=== PATIENT | male | born 1990 | race Caucasian/White ===

== ENCOUNTER 2019-10-17 13:26 | Emergency (ER) | payer OTHER ==
[2019-10-17] MEDS ORDERED: HYDROCODONE/ACETAMINOPHEN 5/325 MG TAB ONE (13:49)
== END 2019-10-17 16:39 | disposition home or self-care (01) ==
LOC: EDH 13:26
DX: S63.8X2A Sprain of other part of left wrist and hand, initial encounter (principal); I10 Essential (primary) hypertension; I48.91 Unspecified atrial fibrillation; Z72.0 Tobacco use; Y04.0XXA Assault by unarmed brawl or fight, initial encounter; Y93.89 Activity, other specified; Y92.89 Other specified places as the place of occurrence of the external cause; Y99.8 Other external cause status
CPT/HCPCS: 73090; 73130

== ENCOUNTER 2020-02-03 21:57 | Inpatient (IN) | payer OTHER ==
[~2020-02-03] VITALS: Ht 175.3 cm; Wt 96.2 kg
[2020-02-03 22:30] LABS: BASOPHILS % (AUTO) 0.4 % (0.0-5.0); EOSINOPHILS % (AUTO) 0.1 % (0.0-8.0); HEMATOCRIT 23.1 % (42-54); MEAN CORPUSCULAR HEMOGLOBIN 30.7 pg (27.0-33.0); MEAN CORPUSCULAR HGB CONC 33.8 g/dL (32.0-36.0); MEAN CORPUSCULAR VOLUME 90.9 fL (79-99); MONOCYTES % (AUTO) 7.3 % (3.0-13.0); NEUTROPHILS % (AUTO) 83.3 % (40.0-77.0); NUCLEATED RED BLOOD CELLS 0.2 % (0.0-0.19); PLATELET COUNT (AUTO) 634 K/uL (130-400); RED BLOOD CELL COUNT(AUTO) 2.54 MIL/uL (4.50-6.20); RED CELL DISTRIBUTION WIDTH 13.4 % (11.0-15.5)
[2020-02-03 22:36] LABS: APPEARANCE,URINE Clear (CLEAR); BILIRUBIN,URINE Small (NEGATIVE); COLOR,URINE Dark Yellow (YELLOW); GLUCOSE, URINE (UA) Negative (NEGATIVE); KETONES,URINE Negative (NEGATIVE); LEUKOCYTE ESTERASE ,URINE Negative (NEGATIVE); NITRATE,URINE Negative (NEGATIVE); OCCULT BLOOD,URINE Negative (NEGATIVE); PH,URINE 7.5 (5.0-8.0); PROTEIN,URINE Trace mg/dL (NEGATIVE)
[2020-02-03 22:39] LABS: CARBON DIOXIDE 29 mmol/L (21-32); CHLORIDE 92 mmol/L (101-111); CREATININE 1.1 mg/dL (0.5-1.5); GLOMERULAR FILTR. RATE CALC 85 mL/min (>60); GLUCOSE,RANDOM 117 mg/dL (70-105); POTASSIUM 3.7 mmol/L (3.5-5.1); SODIUM SERUM 131 mmol/L (136-145); UREA NITROGEN, BLOOD 11 mg/dL (7-18)
[2020-02-03 22:40] LABS: WHITE BLOOD COUNT (AUTO) 38.1 K/uL (4.8-10.8)
[2020-02-03 22:49] LABS: ABG BASE EXCESS 5.9 mmol/L (-2.0-3.0); ABG HCO3 28.5 mmol/L (21.0-28.0); ABG OXYGEN SATURATION 94.8 % (95.0-99.0); ABG PCO2 35 mmHg (35-48)
[2020-02-03 22:52] LABS: ALANINE AMINOTRANSFERASE 26 U/L (12-78); ALBUMIN 1.7 g/dL (3.5-5.0); ASPARTATE AMINOTRANSFERASE 64 U/L (10-37); BILIRUBIN,TOTAL 2.8 mg/dL (0.2-1.0); CREATINE KINASE, TOTAL 10 U/L (21-232); INR 1.06 (0.85-1.15); MYOGLOBIN 13 ng/mL (10-92); PARTIAL THROMBOPLASTIN TIME 28.3 SEC (26.3-35.5); PROTHROMBIN TIME 11.4 SEC (9.6-11.6); TOTAL PROTEIN, SERUM 7.6 g/dL (6.0-8.3); TROPONIN I < 0.04 ng/mL (0.00-0.06)
[2020-02-03] MEDS ORDERED: ACETAMINOPHEN EXTRA STRENGTH 500 MG TABLET ONE (23:01)
[2020-02-03] MEDS ORDERED: ZOSYN 3.375GM+NS 50ML 50 ML IV ONE (23:02)
[2020-02-03] MEDS ORDERED: ONDANSETRON HCL 4 MG/2 ML VIAL ONE (23:02)
[2020-02-03] MEDS ORDERED: MORPHINE SULFATE 2 MG/ML 1ML SYG ONE (23:02)
[2020-02-03 23:04] LABS: BACTERIA,URINE Rare /HPF (None Seen); RBC,URINE 0-1 /HPF (0-1); SQUAMOUS EPITHELIAL CELL,UR 0-2 /HPF (0-2); TRANSITIONAL EPI CELLS,URINE Rare /HPF (None Seen); WBC,URINE 0-1 /HPF (0-1)
[2020-02-03 23:16] LABS: AMYLASE 36 U/L (25-115); LIPASE 429 U/L (114-286)
[2020-02-03 23:24] LABS: BAND NEUTROPHILS % (MANUAL) 5 % (0-2); LYMPHOCYTES % (MANUAL) 9 % (22-44); MAN.DIFF COMMENT-IMPRESSION MANUAL DIFFERENTIAL; MONOCYTES % (MANUAL) 5 % (2-9); SEGMENTED NEUTROPHILS % 81 % (40-70)
[2020-02-04] VITALS (7 sets, daily range): BP systolic 112–129; BP diastolic 59–70
[2020-02-04] MEDS ORDERED: LACTULOSE 20 GM/30 ML UDCUP PO PRN (00:15)
[2020-02-04] MEDS ORDERED: HYDRALAZINE HCL 20 MG/ML VIAL IV PRN (00:30)
[2020-02-04 01:00] LABS: HDL CHOLESTEROL 68 mg/dL (29-71); LDL DIRECT 77 mg/dL (0-99); TRIGLYCERIDES 247 mg/dL (30-200)
[2020-02-04] MEDS ORDERED: PHARMACY COMMUNICATION MISC SCH (01:00)
[2020-02-04 01:20] LABS: AMPHET/METH SCREEN,URINE NEGATIVE (NEGATIVE); BARBITURATE SCREEN, URINE NEGATIVE (NEGATIVE); BENZODIAZEPINES SCREEN,URINE NEGATIVE (NEGATIVE); CANNABINOID SCREEN,URINE POSITIVE (NEGATIVE); COCAINE SCREEN,URINE NEGATIVE (NEGATIVE); OPIATE SCREEN,URINE NEGATIVE (NEGATIVE); PHENCYCLIDINE SCREEN,URINE NEGATIVE (NEGATIVE)
[2020-02-04] MEDS ORDERED: SODIUM CHLORIDE 0.9% 1000ML 1,000 ML IV ONE (01:40)
[2020-02-04 01:48] LABS: HEMOGLOBIN A1C 5.5 % (4.0-6.0)
[2020-02-04 01:52] LABS: CHOLESTEROL 142 mg/dL (<200)
--- NOTE | 2020-02-04 03:00 | NUR ---
PATIENT ARRIVED ON UNIT PATIENT A/OX3. C/O SHORTNESS OF BREATH WITH EXERTION. CURRENTLY USING 2L OF OXYGEN VIA NC. ABDOMEN DISTENDED AND FIRM. PAIN TO LEFT ABDOMEN AND L FLANK. TOLERATING IVF. PATIENT NPO PER ORDERS. CALL LIGHT WITHIN REACH. WILL CONTINUE TO MONITOR.
[2020-02-04] MEDS ORDERED: CIPR-245 PO (03:48)
[2020-02-04] MEDS ORDERED: FENO48TA9 PO (03:48)
[2020-02-04] MEDS ORDERED: HYOS-27 SL (03:48)
[2020-02-04] MEDS: MORPHINE SULFATE 2 MG/ML 1ML SYG IV PRN ×2 (04:04→10:01)
[2020-02-04] MEDS: INSULIN HUMULIN R 100 UNIT/ML 3ML SQ SCH ×3 (06:00→21:00)
[2020-02-04] MEDS: ZOSYN 3.375GM+NS 50ML 50 ML IV SCH ×3 (06:38→21:01)
[2020-02-04] MEDS ORDERED: FAMOTIDINE/PF 20 MG/2 ML VIAL IV SCH (09:00)
[2020-02-04] MEDS ORDERED: PANTOPRAZOLE 40 MG/VIAL IVP SCH (09:00)
[2020-02-04 12:16] LABS: HEMATOCRIT 21.9 % (42-54); MEAN CORPUSCULAR HEMOGLOBIN 30.8 pg (27.0-33.0); MEAN CORPUSCULAR HGB CONC 32.9 g/dL (32.0-36.0); MEAN CORPUSCULAR VOLUME 93.6 fL (79-99); NUCLEATED RED BLOOD CELLS 0.1 % (0.0-0.19); RED BLOOD CELL COUNT(AUTO) 2.34 MIL/uL (4.50-6.20); RED CELL DISTRIBUTION WIDTH 13.7 % (11.0-15.5)
[2020-02-04 12:31] LABS: POTASSIUM 4.2 mmol/L (3.5-5.1)
[2020-02-04 12:32] LABS: WHITE BLOOD COUNT (AUTO) 33.9 K/uL (4.8-10.8)
[2020-02-04 12:36] LABS: ALBUMIN 1.5 g/dL (3.5-5.0); BILIRUBIN,TOTAL 2.8 mg/dL (0.2-1.0); TOTAL PROTEIN, SERUM 6.9 g/dL (6.0-8.3)
[2020-02-04] MEDS ORDERED: IOHEXOL-350 75 ML VIAL IV ONE (15:39)
[2020-02-04] MEDS: SODIUM CHLORIDE 0.9% 1000ML 1,000 ML IV SCH (16:10)
--- NOTE | 2020-02-04 16:16 | NUR ---
CM NOTE MET W PATIENT AT BEDSIDE FOR IA,PT PALE, UNCOMFORTABLE, ANXIOUS LOOKING. ABDOMINAL DISTENTION. LIVES WITH GIRLFRIEND LM ON FACE SHEET, RECENTLY UNEMPLOYED SECOND TO HIS HEALTH. NO DME, DRIVES, INDEPENDENT HAS BEEN DRINKING SINCE HE WAS A KID- STOPPED ABOUT A MONTH AGO. HAS EXPERIENCED SYMPTOMS SINCE THEN . WAS AT [facility] FOR THREE DAYS FOR SAME PROBLEM, PATIENT WILL LIKELY NEED TPN/NPO. DISCUSSED CASE WITH DR. Alvarado, AND WILL PASS ON THE [facility] FOR POSSIBLE DISABILITY BENEFITS? Addendum: 02/04/20 at 0771 by DAV MORROW RN CM Amended: Links added.
[2020-02-04] MEDS: MORPHINE SULFATE 4 MG/1ML SYG IVP PRN ×2 (16:51→21:25)
[2020-02-04] MEDS ORDERED: LIPASE/PROTEASE/AMYLASE 5000/17000/24000 PO SCH (21:00)
[2020-02-04] MEDS: LIPASE/PROTEASE/AMYLASE 5000/17000/24000 PO SCH (21:01)
[2020-02-05] MEDS: MORPHINE SULFATE 4 MG/1ML SYG IVP PRN ×4 (01:33→19:53)
--- NOTE | 2020-02-05 03:46 | NUR ---
PATIENT ABDOMEN REMAINS FIRM,DISTENDED, AND PAINFUL. NO C/O SOB. PATIENT DOES BECOME TACHY REACHING 150S WHEN AMBULATING DUE TO PAIN. MEDICATED THROUGHOUT THE NIGHT WITH ORDERED MEDICATION. TOLERATING IV ANTIBIOTICS. NO S/S OF ADVERSE EFFECTS. WILL CONTINUE TO MONITOR.
[2020-02-05 04:30] VITALS: BP 133/67
[2020-02-05] MEDS: ZOSYN 3.375GM+NS 50ML 50 ML IV SCH ×3 (04:35→19:55)
[2020-02-05] MEDS: SODIUM CHLORIDE 0.9% 1000ML 1,000 ML IV SCH ×3 (04:37→16:10)
[2020-02-05 05:01] LABS: BASOPHILS % (AUTO) 0.4 % (0.0-5.0); EOSINOPHILS % (AUTO) 0.6 % (0.0-8.0); HEMATOCRIT 22.2 % (42-54); LYMPHOCYTES % (AUTO) 5.7 % (21.0-51.0); MEAN CORPUSCULAR HEMOGLOBIN 30.8 pg (27.0-33.0); MEAN CORPUSCULAR HGB CONC 32.4 g/dL (32.0-36.0); MEAN CORPUSCULAR VOLUME 94.9 fL (79-99); MONOCYTES % (AUTO) 6.6 % (3.0-13.0); NEUTROPHILS % (AUTO) 84.9 % (40.0-77.0); NUCLEATED RED BLOOD CELLS 0.1 % (0.0-0.19); RED BLOOD CELL COUNT(AUTO) 2.34 MIL/uL (4.50-6.20); RED CELL DISTRIBUTION WIDTH 13.6 % (11.0-15.5)
[2020-02-05 05:12] LABS: PLATELET COUNT (AUTO) 793 K/uL (130-400); WHITE BLOOD COUNT (AUTO) 31.3 K/uL (4.8-10.8)
[2020-02-05 05:27] LABS: POTASSIUM 4.4 mmol/L (3.5-5.1)
[2020-02-05] MEDS: INSULIN HUMULIN R 100 UNIT/ML 3ML SQ SCH ×3 (05:48→12:00)
[2020-02-05 07:00] VITALS: BP 116/52
--- NOTE | 2020-02-05 07:30 | NUR ---
ASSESSMENT ENCOUNTERED PT A&OX3, CALM COOPERATIVE AND DOES NOT APPEAR TO BE IN ANY DISTRESS NOR ANY NEURO DEFICITS PRESENT. PT DOES C/O INTERMITTENT PAIN AND NAUSEA TO ABDOMEN. PT IS AMBULATORY, GAIT STEADY AND STRONG WITH STAND BY ASSIST. PT IS ABLE TO TOLERATE SMALL AMOUNTS OF CLEAR LIQUID WITH NO THROAT CLEARING OR COUGH. CALL LIGHT WITHIN REACH.
[2020-02-05 09:10] LABS: HEPATITIS A ANTIBODY IGM Negative (Negative); HEPATITIS B CORE IGM Negative (Negative); HEPATITIS Bs ANTIGEN SCREEN P Negative (Negative)
[2020-02-05] MEDS: PANTOPRAZOLE SODIUM 40 MG TABLET.DR PO SCH (09:48)
[2020-02-05] MEDS: LIPASE/PROTEASE/AMYLASE 5000/17000/24000 PO SCH ×4 (09:49→19:55)
[2020-02-05 10:36] LABS: HEMATOCRIT 21.5 % (42-54)
[2020-02-05 11:00] VITALS: BP 116/67
[2020-02-05] MEDS: ACETAMINOPHEN 325 MG TAB PO PRN ×2 (12:41→19:55)
[2020-02-05 15:00] VITALS: BP 112/65
[2020-02-05] MEDS: HYDROMORPHONE HCL 0.5 MG/0.5 ML ML IVP PRN ×2 (15:13→23:31)
[2020-02-05 17:26] LABS: HEMATOCRIT 20.5 % (42-54)
[2020-02-05 19:41] VITALS: BP 126/72
[2020-02-05 23:30] VITALS: BP 138/76
[2020-02-06] MEDS: SODIUM CHLORIDE 0.9% 1000ML 1,000 ML IV SCH ×2 (00:10→08:11)
[2020-02-06] MEDS ORDERED: SODIUM CHLORIDE 0.9% 250 ML IV ONE (00:29)
[2020-02-06] MEDS: MORPHINE SULFATE 4 MG/1ML SYG IVP PRN ×4 (02:53→21:57)
[2020-02-06 03:57] VITALS: BP 136/72
[2020-02-06] MEDS: ZOSYN 3.375GM+NS 50ML 50 ML IV SCH (04:28)
[2020-02-06] MEDS: INSULIN HUMULIN R 100 UNIT/ML 3ML SQ SCH ×4 (05:40→21:00)
[2020-02-06] MEDS: HYDROMORPHONE HCL 0.5 MG/0.5 ML ML IVP PRN ×3 (05:40→19:07)
[2020-02-06 06:01] LABS: BASOPHILS % (AUTO) 0.3 % (0.0-5.0); EOSINOPHILS % (AUTO) 0.3 % (0.0-8.0); LYMPHOCYTES % (AUTO) 5.2 % (21.0-51.0); MEAN CORPUSCULAR HEMOGLOBIN 30.5 pg (27.0-33.0); MEAN CORPUSCULAR HGB CONC 32.7 g/dL (32.0-36.0); MEAN CORPUSCULAR VOLUME 93.3 fL (79-99); MONOCYTES % (AUTO) 7.1 % (3.0-13.0); NEUTROPHILS % (AUTO) 85.6 % (40.0-77.0); RED CELL DISTRIBUTION WIDTH 13.5 % (11.0-15.5)
[2020-02-06 06:10] LABS: HEMATOCRIT 19.6 % (42-54); PLATELET COUNT (AUTO) 785 K/uL (130-400); WHITE BLOOD COUNT (AUTO) 31.7 K/uL (4.8-10.8)
[2020-02-06 06:21] LABS: ALBUMIN 1.6 g/dL (3.5-5.0); BILIRUBIN,TOTAL 1.9 mg/dL (0.2-1.0); CREATININE 0.9 mg/dL (0.5-1.5); POTASSIUM 4.1 mmol/L (3.5-5.1)
[2020-02-06 07:00] VITALS: BP 125/75
[2020-02-06] MEDS: ACETAMINOPHEN 325 MG TAB PO PRN ×2 (08:01→20:31)
[2020-02-06] MEDS ORDERED: VANCOMYCIN PROTOCOL PER PHARMACY IV SCH (08:15)
[2020-02-06] MEDS ORDERED: COMPOUND IV REFRIGERATED 1 EACH IVSOLN MISC PRN (08:30)
[2020-02-06] MEDS: VANCOMYCIN 1.25 GM in SODIUM CHLORIDE 0.9% 250 ML IV SCH ×2 (09:50→21:08)
[2020-02-06 11:00] VITALS: BP 135/73
[2020-02-06] MEDS: LIPASE/PROTEASE/AMYLASE 5000/17000/24000 PO SCH ×3 (13:00→20:28)
[2020-02-06] MEDS: PANTOPRAZOLE SODIUM 40 MG TABLET.DR PO SCH (13:00)
[2020-02-06] MEDS: MEROPENEM 1 GM VIAL IVP SCH ×2 (13:00→20:28)
[2020-02-06 15:00] VITALS: BP 139/74
[2020-02-06 20:00] VITALS: BP 132/70
[2020-02-06 23:43] VITALS: BP 117/76
[2020-02-07] MEDS: HYDROMORPHONE HCL 0.5 MG/0.5 ML ML IVP PRN ×4 (01:04→19:53)
[2020-02-07] MEDS: MORPHINE SULFATE 4 MG/1ML SYG IVP PRN ×4 (02:16→17:04)
[2020-02-07 04:09] VITALS: BP 128/78
[2020-02-07] MEDS: MEROPENEM 1 GM VIAL IVP SCH ×3 (04:54→13:57)
[2020-02-07] MEDS: SODIUM CHLORIDE 0.9% 1000ML 1,000 ML IV SCH ×3 (04:57→20:23)
[2020-02-07 05:25] LABS: BASOPHILS % (AUTO) 0.3 % (0.0-5.0); EOSINOPHILS % (AUTO) 0.5 % (0.0-8.0); HEMATOCRIT 23.2 % (42-54); LYMPHOCYTES % (AUTO) 5.9 % (21.0-51.0); MEAN CORPUSCULAR HEMOGLOBIN 30.4 pg (27.0-33.0); MEAN CORPUSCULAR HGB CONC 33.2 g/dL (32.0-36.0); MEAN CORPUSCULAR VOLUME 91.7 fL (79-99); MONOCYTES % (AUTO) 7.6 % (3.0-13.0); NEUTROPHILS % (AUTO) 84.8 % (40.0-77.0); RED BLOOD CELL COUNT(AUTO) 2.53 MIL/uL (4.50-6.20); RED CELL DISTRIBUTION WIDTH 13.8 % (11.0-15.5); WHITE BLOOD COUNT (AUTO) 26.6 K/uL (4.8-10.8)
[2020-02-07 05:32] LABS: PLATELET COUNT (AUTO) 878 K/uL (130-400)
[2020-02-07 05:33] LABS: % IRON SATURATION 9.4 % (30-44)
[2020-02-07 05:38] LABS: ALBUMIN 1.6 g/dL (3.5-5.0); BILIRUBIN,DIRECT 1.1 mg/dL (0.0-0.3); BILIRUBIN,TOTAL 1.7 mg/dL (0.2-1.0); CREATININE 0.6 mg/dL (0.5-1.5); POTASSIUM 4.1 mmol/L (3.5-5.1); TOTAL PROTEIN, SERUM 7.1 g/dL (6.0-8.3)
[2020-02-07] MEDS: INSULIN HUMULIN R 100 UNIT/ML 3ML SQ SCH ×4 (06:54→20:35)
[2020-02-07 07:00] VITALS: BP 138/78
[2020-02-07 08:20] LABS: INR 1.18 (0.85-1.15); PARTIAL THROMBOPLASTIN TIME 30.8 SEC (26.3-35.5); PROTHROMBIN TIME 12.7 SEC (9.6-11.6)
[2020-02-07] MEDS: ONDANSETRON HCL 4 MG/2 ML VIAL IV PRN (08:35)
[2020-02-07] MEDS: VANCOMYCIN 1.25 GM in SODIUM CHLORIDE 0.9% 250 ML IV SCH (09:13)
[2020-02-07] MEDS ORDERED: COMPOUND IV MISC 1 EACH IVSOLN MISC PRN (09:45)
[2020-02-07 11:00] VITALS: BP 141/84
--- NOTE | 2020-02-07 11:20 | NUR ---
RE:CT GUIDED ABDOMINAL ASPIRATION BY IR FOR FLUID C&S IMAGES REVIEWED BY DR Christopher ROJAS AND CANCELED PROCEDURE. THERE ARE MULTIPLE LOCULATED PANCREATIC PSEUDOCYSTS WITH HIGH RISK OF COMPLICATIONS IF ASPIRATED OR DRAINED. RECOMMENDS TREATMENT BASED ON BLOOD CULTURES. PROCEDURE OUTCOME REPORTED TO INOCENCIA FRANCIS.
[2020-02-07] MEDS: LIPASE/PROTEASE/AMYLASE 5000/17000/24000 PO SCH ×4 (11:45→20:22)
[2020-02-07] MEDS: IRON SUCROSE COMPLEX 100 MG in SODIUM CHLORIDE 0.9% 50 ML IV SCH (11:45)
[2020-02-07] MEDS: PANTOPRAZOLE SODIUM 40 MG TABLET.DR PO SCH (11:46)
[2020-02-07 16:00] VITALS: BP 121/74
[2020-02-07 19:45] VITALS: BP 144/76
--- NOTE | 2020-02-07 21:30 | NUR ---
REPORT REPORT RECEIVED FROM INOCENCIA JEROME. TOOK OVER CARE OF PT.
[2020-02-07] MEDS: VANCOMYCIN 1.5 GM in SODIUM CHLORIDE 0.9% 250 ML IV SCH (21:58)
[2020-02-07] MEDS: KETOROLAC TROMETHAMINE 30MG/ML IV PRN (21:59)
--- NOTE | 2020-02-07 22:00 | NUR ---
MEDS PT CLAIMS OF ABDOMINAL PAINS. MEDICATED WITH TORADOL IV AT THIS TIME. DUE IV ANTIBIOTICS INFUSED. PIV TO LAC NOTED TO BE INFILTRATED, DISCONTINUED WITH CATHETER INTACT. KEPT RESTED AND COMFORTABLE WITH HOB ELEVATED. CALL LIGHT WITHIN REACH. WILL RE-ASSESS PT.
[2020-02-08 00:27] VITALS: BP 123/69
[2020-02-08] MEDS: MORPHINE SULFATE 4 MG/1ML SYG IVP PRN ×3 (00:36→11:06)
[2020-02-08] MEDS: HYDROMORPHONE HCL 0.5 MG/0.5 ML ML IVP PRN ×5 (02:05→23:13)
--- NOTE | 2020-02-08 02:05 | NUR ---
PAIN PT CLAIMS OF ABDOMINAL PAINS. NO NAUSEA REPORTED. MEDICATED WITH DILAUDID IV. KEPT COMFORTABLE IN BED. ENCOURAGED TO RELAX AND SLEEP. WILL RE-ASSESS PT.
[2020-02-08 04:04] VITALS: BP 141/74
[2020-02-08] MEDS: MEROPENEM 1 GM VIAL IVP SCH ×3 (04:23→20:57)
[2020-02-08] MEDS: ACETAMINOPHEN 325 MG TAB PO PRN ×2 (04:23→11:00)
--- NOTE | 2020-02-08 04:23 | NUR ---
FEVER PT HAS A [id number]. COLD PACKS PROVIDED FOR PT. ROOM TEMPERATURE KEPT COOL. REMOVED EXTRA BLANKET. MEDICATED WITH TYLENOL PO. WILL RE-ASSESS PT.
--- NOTE | 2020-02-08 05:07 | NUR ---
PAIN PT CLAIMS OF ABDOMINAL PAINS. MEDICATED WITH MORPHINE IV. KEPT COMFORTABLE IN BED. CALL LIGHT WITHIN REACH. WILL RE-ASSESS PT.
[2020-02-08 06:23] LABS: BASOPHILS % (AUTO) 0.4 % (0.0-5.0); EOSINOPHILS % (AUTO) 0.7 % (0.0-8.0); HEMATOCRIT 22.8 % (42-54); LYMPHOCYTES % (AUTO) 5.8 % (21.0-51.0); MEAN CORPUSCULAR HEMOGLOBIN 29.8 pg (27.0-33.0); MEAN CORPUSCULAR HGB CONC 32.5 g/dL (32.0-36.0); MEAN CORPUSCULAR VOLUME 91.9 fL (79-99); MONOCYTES % (AUTO) 9.8 % (3.0-13.0); NEUTROPHILS % (AUTO) 82.4 % (40.0-77.0); RED BLOOD CELL COUNT(AUTO) 2.48 MIL/uL (4.50-6.20); RED CELL DISTRIBUTION WIDTH 14.3 % (11.0-15.5); WHITE BLOOD COUNT (AUTO) 22.8 K/uL (4.8-10.8)
[2020-02-08 06:28] LABS: PLATELET COUNT (AUTO) 887 K/uL (130-400)
[2020-02-08 06:33] LABS: ALBUMIN 1.7 g/dL (3.5-5.0); BILIRUBIN,TOTAL 1.4 mg/dL (0.2-1.0); CREATININE 0.8 mg/dL (0.5-1.5); POTASSIUM 4.6 mmol/L (3.5-5.1); TOTAL PROTEIN, SERUM 7.3 g/dL (6.0-8.3)
[2020-02-08] MEDS: INSULIN HUMULIN R 100 UNIT/ML 3ML SQ SCH ×4 (06:37→21:00)
[2020-02-08 07:00] VITALS: BP 131/86
[2020-02-08] MEDS: PANTOPRAZOLE SODIUM 40 MG TABLET.DR PO SCH (08:19)
[2020-02-08] MEDS: LIPASE/PROTEASE/AMYLASE 5000/17000/24000 PO SCH ×4 (08:19→20:57)
[2020-02-08] MEDS: IRON SUCROSE COMPLEX 100 MG in SODIUM CHLORIDE 0.9% 50 ML IV SCH (08:22)
[2020-02-08 11:00] VITALS: BP 141/76
[2020-02-08] MEDS: VANCOMYCIN 1.5 GM in SODIUM CHLORIDE 0.9% 250 ML IV SCH ×2 (11:01→20:57)
[2020-02-08] MEDS: KETOROLAC TROMETHAMINE 30MG/ML IV PRN (13:07)
[2020-02-08] MEDS: SODIUM CHLORIDE 0.9% 1000ML 1,000 ML IV SCH (13:31)
--- NOTE | 2020-02-08 14:50 | NUR ---
RE:CT GUIDED ABDOMINAL ASPIRATION BY IR FOR FLUID C&S IMAGES REVIEWED BY DR. BRITO HE AGREES WITH DR. ROJAS AND CANCELED PROCEDURE. HE STATES, "THERE ARE MULTIPLE LOCULATED PANCREATIC PSEUDOCYSTS WITH HIGH RISK OF COMPLICATIONS IF ASPIRATED OR DRAINED. RECOMMENDS TREATMENT BASED ON BLOOD CULTURES." PROCEDURE OUTCOME REPORTED TO PENNY PEREZ RN.
[2020-02-08 16:00] VITALS: BP 118/70
[2020-02-08 19:25] VITALS: BP 138/78
[2020-02-08] MEDS: HYDROMORPHONE HCL 2 MG/ML VIAL IVP PRN (20:56)
--- NOTE | 2020-02-08 20:57 | NUR ---
PAIN PT C/O OF ABD PAIN. ADMIN PAIN MED ORDERED- SEE NOV. ABD ROUND, DISTENDED. NO C/O N/V. CYBER SECURITY ADMINISTRATOR REPORTING SINUS TACH 130S. CALL LIGHT WITHIN REACH. BED LOCKED IN LOWEST POSITION. 2 LPM O2 VIA NC ON. REINFORCED FOR PT TO USE CALL LIGHT TO CALL FOR ASSISTANCE BEFORE GETTING OUT OF BED.
[2020-02-09] VITALS (7 sets, daily range): BP systolic 128–151; BP diastolic 59–83
--- NOTE | 2020-02-09 00:52 | NUR ---
PAGED VENUS PT REPORTS FEELING SOB UPON EXERTION. RAMA KING RETURNED PAGED. ORDERED IS FOR NOW D/T ELEVATED HR 121. CXR IN AM. BNP IN AM. BED REST. WILL PLACE ORDERS IN [facility] AND IMPLEMENT. WILL CLOSELY CONT TO MONITOR PT.
[2020-02-09] MEDS: HYDROMORPHONE HCL 2 MG/ML VIAL IVP PRN ×3 (02:19→14:21)
[2020-02-09] MEDS: MEROPENEM 1 GM VIAL IVP SCH ×2 (04:02→16:06)
[2020-02-09] MEDS: KETOROLAC TROMETHAMINE 30MG/ML IV PRN (04:03)
[2020-02-09 05:06] LABS: BASOPHILS % (AUTO) 0.5 % (0.0-5.0); EOSINOPHILS % (AUTO) 0.3 % (0.0-8.0); LYMPHOCYTES % (AUTO) 7.1 % (21.0-51.0); MEAN CORPUSCULAR HEMOGLOBIN 29.1 pg (27.0-33.0); MEAN CORPUSCULAR HGB CONC 31.7 g/dL (32.0-36.0); MEAN CORPUSCULAR VOLUME 91.6 fL (79-99); RED BLOOD CELL COUNT(AUTO) 2.27 MIL/uL (4.50-6.20); RED CELL DISTRIBUTION WIDTH 14.5 % (11.0-15.5); WHITE BLOOD COUNT (AUTO) 23.4 K/uL (4.8-10.8)
[2020-02-09 05:27] LABS: MAGNESIUM 1.6 mg/dL (1.80-2.40)
[2020-02-09 05:32] LABS: HEMATOCRIT 20.8 % (42-54); PLATELET COUNT (AUTO) 823 K/uL (130-400)
--- NOTE | 2020-02-09 05:45 | NUR ---
CRITICAL LAB HGB 6.6, HCT 20.8, PLT 823. PENDING CHRISTINE YANG TO CALL BACK.
[2020-02-09 05:54] LABS: CRP QUANTITATIVE 339.5 mg/L (0.00-9.0)
--- NOTE | 2020-02-09 05:58 | NUR ---
VENUS RETURNED [facility] VALUES REPORTED TO CHRISTINE PINEDA. MIRIAM ORDERED FOR ONE UNIT PRBCs BE TRANSFUSED OVER FOUR HOURS.
[2020-02-09] MEDS: HYDROMORPHONE HCL 0.5 MG/0.5 ML ML IVP PRN (06:38)
[2020-02-09] MEDS: INSULIN HUMULIN R 100 UNIT/ML 3ML SQ SCH ×4 (07:15→19:52)
--- NOTE | 2020-02-09 07:22 | NUR ---
REPORT GIVEN TO CECILLE PRO. NURSE INFORMED OF PENDING PRBC TRANSFUSION. PT AWARE OF TRANSFUSION. PENDING BLOOD BANK TO AUTHORIZE ORDER.
[2020-02-09] MEDS: VANCOMYCIN 1.5 GM in SODIUM CHLORIDE 0.9% 250 ML IV SCH (08:35)
[2020-02-09] MEDS: PANTOPRAZOLE SODIUM 40 MG TABLET.DR PO SCH (08:35)
[2020-02-09] MEDS: LIPASE/PROTEASE/AMYLASE 5000/17000/24000 PO SCH ×4 (08:35→23:47)
[2020-02-09] MEDS: IRON SUCROSE COMPLEX 100 MG in SODIUM CHLORIDE 0.9% 50 ML IV SCH (08:35)
[2020-02-09] MEDS: ACETAMINOPHEN 325 MG TAB PO PRN (10:39)
[2020-02-09] MEDS ORDERED: FUROSEMIDE 10 MG/ML 2ML VIAL IV SCH ×2 (11:00→17:00)
[2020-02-09] MEDS: SODIUM CHLORIDE 0.9% 1000ML 1,000 ML IV SCH ×2 (16:00→16:11)
[2020-02-09] MEDS: FLUCONAZOLE 200 MG/NS 100 ML 100 ML IV SCH (16:06)
[2020-02-09 16:46] LABS: HEMATOCRIT 25.4 % (42-54)
[2020-02-09] MEDS ORDERED: HYDROMORPHONE 1 MG/1 ML AMP ONE (19:39)
[2020-02-09] MEDS ORDERED: VANCOMYCIN 2 GM in SODIUM CHLORIDE 0.9% 500ML 500 ML IV ONE (21:30)
--- NOTE | 2020-02-09 22:45 | NUR ---
VANCOMYCIN Vanco trough at 6.6, pharmacy adjusted dose to 2 gm ivpb for tonight then back to 1.5 gms q 8 hrs.
[2020-02-09] MEDS: HYDROMORPHONE 1 MG/1 ML AMP IVP PRN (23:46)
[2020-02-10] MEDS: MEROPENEM 1 GM VIAL IVP SCH ×4 (00:37→20:41)
[2020-02-10] MEDS: TEMAZEPAM 7.5 MG CAPSULE PO PRN (01:16)
[2020-02-10] MEDS: HYDROMORPHONE 1 MG/1 ML AMP IVP PRN ×5 (03:55→20:44)
[2020-02-10 03:58] VITALS: BP 130/73
[2020-02-10] MEDS: VANCOMYCIN 1.5 GM in SODIUM CHLORIDE 0.9% 250 ML IV SCH ×3 (05:02→22:30)
[2020-02-10 05:19] LABS: BASOPHILS % (AUTO) 0.3 % (0.0-5.0); EOSINOPHILS % (AUTO) 0.8 % (0.0-8.0); HEMATOCRIT 24.3 % (42-54); MEAN CORPUSCULAR HEMOGLOBIN 29.8 pg (27.0-33.0); MEAN CORPUSCULAR HGB CONC 32.1 g/dL (32.0-36.0); MEAN CORPUSCULAR VOLUME 92.7 fL (79-99); MONOCYTES % (AUTO) 12.5 % (3.0-13.0); NEUTROPHILS % (AUTO) 77.4 % (40.0-77.0); RED BLOOD CELL COUNT(AUTO) 2.62 MIL/uL (4.50-6.20); RED CELL DISTRIBUTION WIDTH 14.4 % (11.0-15.5); WHITE BLOOD COUNT (AUTO) 19.6 K/uL (4.8-10.8)
[2020-02-10 05:35] LABS: PHOSPHORUS 3.2 mg/dL (2.5-4.9)
[2020-02-10 05:53] LABS: PLATELET COUNT (AUTO) 771 K/uL (130-400)
[2020-02-10] MEDS: INSULIN HUMULIN R 100 UNIT/ML 3ML SQ SCH ×4 (06:28→20:40)
[2020-02-10 07:18] VITALS: BP 145/94
[2020-02-10] MEDS: SODIUM CHLORIDE 0.9% 1000ML 1,000 ML IV SCH ×2 (08:29→16:43)
[2020-02-10] MEDS: IRON SUCROSE COMPLEX 100 MG in SODIUM CHLORIDE 0.9% 50 ML IV SCH (08:29)
[2020-02-10] MEDS: LIPASE/PROTEASE/AMYLASE 5000/17000/24000 PO SCH ×4 (08:33→20:40)
[2020-02-10] MEDS: PANTOPRAZOLE SODIUM 40 MG TABLET.DR PO SCH (08:33)
[2020-02-10 08:49] LABS: CREATININE 0.6 mg/dL (0.5-1.5)
[2020-02-10 08:56] LABS: ALBUMIN 1.7 g/dL (3.5-5.0); BILIRUBIN,TOTAL 1.4 mg/dL (0.2-1.0); TOTAL PROTEIN, SERUM 6.7 g/dL (6.0-8.3)
[2020-02-10] MEDS ORDERED: IOHEXOL-350 75 ML VIAL IV ONE (09:27)
[2020-02-10 10:37] VITALS: BP 142/80
--- NOTE | 2020-02-10 11:50 | NUR ---
RD NOTIFICATION - TUBE FEEDING Pending DobHoff placement. Recommend Continuous Vital AF 1.2 initiated at 20mls/hr for first 5 hours Increase rate by 5 ml every 5 hours to goal Goal Rate: 65mls/hr to provide 1872kcal, 117gm protein, 1265ml free H2O H2O Flush: 105 ml every 6 hours. Recommendations to be placed in Pt chart. RN to be notified. Nutrition Note: Pt admitted with chronic pancreatitis, elevated liver enzymes. Pt with increased abdominal pain on Clear Liquids. Pt placed on Bowel rest. Pending quang placement for post-pyloric, elemental feedings. RD to continue to monitor. Addendum: 02/10/20 at [address] Amended: Links added.
[2020-02-10] MEDS: FLUCONAZOLE 200 MG/NS 100 ML 100 ML IV SCH (12:43)
--- NOTE | 2020-02-10 14:15 | NUR ---
TUBE FEEDING VITAL 1.2 STARTED. ABDOMEN SOFT, MILDLY DISTENDED. DENIES ANY PAIN/DISCOMFORT AT THIS TIME. DUBHOFF TUBE PLACEMENT CHECKED AFTER REMOVING WIRE POST OK TO USE ORDER FROM DR. WU. FLUSHED W 110 ML H20. PT TOLERATED WELL.WILL CONTINUE TO MONITOR.
--- NOTE | 2020-02-10 15:35 | NUR ---
C/O ABDOMINAL DISCOMFORT D/T ABDOMEN DISTENTION. ABDOMEN DISTENDED AND REPORTS DISCOMFORT. STOPPED FEEDING. NOTIFIED DR. WU. WILL CONTINUE TO MONITOR.
[2020-02-10 16:00] VITALS: BP 139/79
[2020-02-10] MEDS: ONDANSETRON HCL 4 MG/2 ML VIAL IV PRN (16:43)
[2020-02-10] MEDS ORDERED: MAGNESIUM 2GM PREMIX 50ML 50 ML IV ONE (18:48)
[2020-02-10] MEDS ORDERED: MAGNESIUM 2GM PREMIX 50ML 50 ML IV SCH (19:00)
[2020-02-10 19:05] VITALS: BP 148/76
[2020-02-10 23:09] VITALS: BP 139/76
[2020-02-11] MEDS: HYDROMORPHONE 1 MG/1 ML AMP IVP PRN ×6 (00:35→23:55)
[2020-02-11 03:26] VITALS: BP 136/77
[2020-02-11] MEDS: KETOROLAC TROMETHAMINE 30MG/ML IV PRN ×2 (03:34→22:55)
[2020-02-11 04:09] LABS: BASOPHILS % (AUTO) 0.5 % (0.0-5.0); EOSINOPHILS % (AUTO) 1.1 % (0.0-8.0); HEMATOCRIT 24.8 % (42-54); LYMPHOCYTES % (AUTO) 8.1 % (21.0-51.0); MEAN CORPUSCULAR HEMOGLOBIN 29.5 pg (27.0-33.0); MEAN CORPUSCULAR HGB CONC 32.7 g/dL (32.0-36.0); MEAN CORPUSCULAR VOLUME 90.2 fL (79-99); MONOCYTES % (AUTO) 13.2 % (3.0-13.0); NEUTROPHILS % (AUTO) 76.2 % (40.0-77.0); RED BLOOD CELL COUNT(AUTO) 2.75 MIL/uL (4.50-6.20); RED CELL DISTRIBUTION WIDTH 14.7 % (11.0-15.5); WHITE BLOOD COUNT (AUTO) 19.2 K/uL (4.8-10.8)
[2020-02-11 04:43] LABS: PLATELET COUNT (AUTO) 821 K/uL (130-400)
[2020-02-11 04:52] LABS: ALBUMIN 1.6 g/dL (3.5-5.0); BILIRUBIN,TOTAL 1.1 mg/dL (0.2-1.0); CREATININE 0.6 mg/dL (0.5-1.5); MAGNESIUM 1.9 mg/dL (1.80-2.40); PHOSPHORUS 3.2 mg/dL (2.5-4.9); POTASSIUM 3.7 mmol/L (3.5-5.1); TOTAL PROTEIN, SERUM 6.9 g/dL (6.0-8.3)
[2020-02-11 05:17] LABS: CRP QUANTITATIVE 306.3 mg/L (0.00-9.0)
[2020-02-11] MEDS: MEROPENEM 1 GM VIAL IVP SCH ×3 (05:48→20:03)
[2020-02-11] MEDS: INSULIN HUMULIN R 100 UNIT/ML 3ML SQ SCH ×4 (05:57→21:00)
[2020-02-11] MEDS: VANCOMYCIN 1.5 GM in SODIUM CHLORIDE 0.9% 250 ML IV SCH (07:41)
[2020-02-11] MEDS: SODIUM CHLORIDE 0.9% 1000ML 1,000 ML IV SCH ×2 (07:42→22:55)
[2020-02-11 07:48] VITALS: BP 130/74
[2020-02-11] MEDS: LIPASE/PROTEASE/AMYLASE 5000/17000/24000 PO SCH ×4 (11:08→19:54)
[2020-02-11] MEDS: PANTOPRAZOLE SODIUM 40 MG TABLET.DR PO SCH (11:08)
[2020-02-11] MEDS: IRON SUCROSE COMPLEX 100 MG in SODIUM CHLORIDE 0.9% 50 ML IV SCH (11:09)
[2020-02-11 11:32] VITALS: BP 141/88
[2020-02-11] MEDS: FLUCONAZOLE 200 MG/NS 100 ML 100 ML IV SCH (13:38)
[2020-02-11] MEDS: VANCOMYCIN 1.75 GM in SODIUM CHLORIDE 0.9% 250 ML IV SCH ×2 (14:00→22:58)
[2020-02-11 15:31] VITALS: BP 150/83
[2020-02-11 20:12] VITALS: BP 146/84
[2020-02-12] VITALS: BP 140/75
[2020-02-12 04:00] VITALS: BP 146/96
[2020-02-12] MEDS: MEROPENEM 1 GM VIAL IVP SCH ×3 (04:04→20:18)
[2020-02-12] MEDS: HYDROMORPHONE 1 MG/1 ML AMP IVP PRN ×5 (04:04→21:49)
[2020-02-12] MEDS: VANCOMYCIN 1.75 GM in SODIUM CHLORIDE 0.9% 250 ML IV SCH ×2 (05:10→14:00)
[2020-02-12 06:27] LABS: BASOPHILS % (AUTO) 0.5 % (0.0-5.0); EOSINOPHILS % (AUTO) 1.4 % (0.0-8.0); HEMATOCRIT 28.7 % (42-54); LYMPHOCYTES % (AUTO) 6.2 % (21.0-51.0); MEAN CORPUSCULAR HEMOGLOBIN 29.1 pg (27.0-33.0); MEAN CORPUSCULAR HGB CONC 31.4 g/dL (32.0-36.0); MEAN CORPUSCULAR VOLUME 92.9 fL (79-99); MONOCYTES % (AUTO) 11.3 % (3.0-13.0); NEUTROPHILS % (AUTO) 79.2 % (40.0-77.0); NUCLEATED RED BLOOD CELLS 0.1 % (0.0-0.19); RED BLOOD CELL COUNT(AUTO) 3.09 MIL/uL (4.50-6.20); RED CELL DISTRIBUTION WIDTH 14.9 % (11.0-15.5); WHITE BLOOD COUNT (AUTO) 23.8 K/uL (4.8-10.8)
[2020-02-12] MEDS: INSULIN HUMULIN R 100 UNIT/ML 3ML SQ SCH ×4 (06:38→21:00)
[2020-02-12 06:46] LABS: ALBUMIN 1.7 g/dL (3.5-5.0); BILIRUBIN,TOTAL 1.5 mg/dL (0.2-1.0); MAGNESIUM 1.5 mg/dL (1.80-2.40); PHOSPHORUS 3.5 mg/dL (2.5-4.9); POTASSIUM 3.7 mmol/L (3.5-5.1); TOTAL PROTEIN, SERUM 6.8 g/dL (6.0-8.3)
[2020-02-12 06:56] LABS: PLATELET COUNT (AUTO) 866 K/uL (130-400)
[2020-02-12] MEDS: KETOROLAC TROMETHAMINE 30MG/ML IV PRN (08:13)
[2020-02-12 08:14] VITALS: BP 141/84
[2020-02-12] MEDS: LIPASE/PROTEASE/AMYLASE 5000/17000/24000 PO SCH ×4 (09:00→20:18)
[2020-02-12] MEDS: PANTOPRAZOLE SODIUM 40 MG TABLET.DR PO SCH (09:00)
[2020-02-12 09:26] LABS: CRP QUANTITATIVE 60.9 mg/L (0.00-9.0)
[2020-02-12] MEDS: IRON SUCROSE COMPLEX 100 MG in SODIUM CHLORIDE 0.9% 50 ML IV SCH (09:53)
[2020-02-12 12:00] VITALS: BP 135/81
[2020-02-12] MEDS: FLUCONAZOLE 200 MG/NS 100 ML 100 ML IV SCH (14:18)
[2020-02-12 15:44] VITALS: BP 150/88
[2020-02-12 19:27] VITALS: BP 135/84
[2020-02-12] MEDS: SODIUM CHLORIDE 0.9% 1000ML 1,000 ML IV SCH (20:17)
[2020-02-12] MEDS: VANCOMYCIN 1GM+NS 250ML 250 ML IV SCH (21:56)
--- NOTE | 2020-02-12 23:00 | NUR ---
DOBHOFF OUT OF PLACEMENT PER RN OF DAY SHIFT AND STATED THAT DRS AWARE, PATIENT PULLED OUT DOBHOFF AT THIS TIME..
[2020-02-13] VITALS (7 sets, daily range): BP systolic 134–152; BP diastolic 81–94
[2020-02-13] MEDS: SODIUM CHLORIDE 0.9% 1000ML 1,000 ML IV SCH ×2 (00:11→13:33)
[2020-02-13] MEDS: TEMAZEPAM 7.5 MG CAPSULE PO PRN ×2 (00:19→22:57)
[2020-02-13] MEDS: HYDROMORPHONE 1 MG/1 ML AMP IVP PRN ×5 (02:18→20:03)
[2020-02-13 04:02] LABS: BASOPHILS % (AUTO) 0.5 % (0.0-5.0); EOSINOPHILS % (AUTO) 1.3 % (0.0-8.0); HEMATOCRIT 23.2 % (42-54); LYMPHOCYTES % (AUTO) 7.5 % (21.0-51.0); MEAN CORPUSCULAR HEMOGLOBIN 28.9 pg (27.0-33.0); MEAN CORPUSCULAR HGB CONC 31.5 g/dL (32.0-36.0); MEAN CORPUSCULAR VOLUME 91.7 fL (79-99); MONOCYTES % (AUTO) 11.6 % (3.0-13.0); NEUTROPHILS % (AUTO) 77.5 % (40.0-77.0); RED BLOOD CELL COUNT(AUTO) 2.53 MIL/uL (4.50-6.20); RED CELL DISTRIBUTION WIDTH 15.4 % (11.0-15.5); WHITE BLOOD COUNT (AUTO) 21.7 K/uL (4.8-10.8)
[2020-02-13 04:15] LABS: ALBUMIN 1.5 g/dL (3.5-5.0); MAGNESIUM 1.6 mg/dL (1.80-2.40); PHOSPHORUS 4.3 mg/dL (2.5-4.9); POTASSIUM 3.8 mmol/L (3.5-5.1); TOTAL PROTEIN, SERUM 6.3 g/dL (6.0-8.3)
[2020-02-13 04:22] LABS: PLATELET COUNT (AUTO) 727 K/uL (130-400)
[2020-02-13 04:23] LABS: CRP QUANTITATIVE 291.6 mg/L (0.00-9.0)
[2020-02-13] MEDS: MEROPENEM 1 GM VIAL IVP SCH ×3 (05:43→19:54)
[2020-02-13] MEDS: VANCOMYCIN 1GM+NS 250ML 250 ML IV SCH ×2 (05:46→14:00)
[2020-02-13] MEDS: INSULIN HUMULIN R 100 UNIT/ML 3ML SQ SCH ×4 (06:18→19:54)
[2020-02-13] MEDS: LIPASE/PROTEASE/AMYLASE 5000/17000/24000 PO SCH ×4 (09:00→19:54)
[2020-02-13] MEDS: IRON SUCROSE COMPLEX 100 MG in SODIUM CHLORIDE 0.9% 50 ML IV SCH (09:28)
[2020-02-13] MEDS: PANTOPRAZOLE SODIUM 40 MG TABLET.DR PO SCH (09:28)
[2020-02-13] MEDS: FLUCONAZOLE 200 MG/NS 100 ML 100 ML IV SCH (13:33)
[2020-02-14] MEDS: HYDROMORPHONE 1 MG/1 ML AMP IVP PRN ×6 (00:11→20:15)
[2020-02-14] MEDS: SODIUM CHLORIDE 0.9% 1000ML 1,000 ML IV SCH ×3 (02:13→23:24)
[2020-02-14 03:43] VITALS: BP 157/97
[2020-02-14] MEDS: MEROPENEM 1 GM VIAL IVP SCH ×3 (04:08→20:14)
[2020-02-14] MEDS: INSULIN HUMULIN R 100 UNIT/ML 3ML SQ SCH ×4 (05:22→21:00)
[2020-02-14 05:47] LABS: ALBUMIN 1.6 g/dL (3.5-5.0); CREATININE 2.1 mg/dL (0.5-1.5); POTASSIUM 3.9 mmol/L (3.5-5.1); TOTAL PROTEIN, SERUM 6.6 g/dL (6.0-8.3)
[2020-02-14] MEDS ORDERED: VANCOMYCIN 1GM+NS 250ML 250 ML IV SCH ×2 (06:00→11:15)
[2020-02-14 07:41] VITALS: BP 147/92
[2020-02-14] MEDS: LIPASE/PROTEASE/AMYLASE 5000/17000/24000 PO SCH ×4 (07:48→21:00)
[2020-02-14] MEDS: PANTOPRAZOLE SODIUM 40 MG TABLET.DR PO SCH (07:48)
[2020-02-14] MEDS: IRON SUCROSE COMPLEX 100 MG in SODIUM CHLORIDE 0.9% 50 ML IV SCH (08:23)
--- NOTE | 2020-02-14 08:37 | NUR ---
RE:CT GUIDED PANCREATIC PSEUDOCYST ASPIRATION BY IR FOR FLUID C&S PROCEDURE PREVIOUSLY CANCELED BY DR BRITO ON 02/07/20 AND 02/08/20. IMAGES REVIEWED BY DR. BRITO AND DR DR. ROJAS. BOTH STATED, "THERE ARE MULTIPLE LOCULATED PANCREATIC PSEUDOCYSTS WITH HIGH RISK OF COMPLICATIONS IF ASPIRATED OR DRAINED. RECOMMENDS TREATMENT BASED ON BLOOD CULTURES." PROCEDURE OUTCOME REPORTED TO Christopher KOO RN. DR DAIGLE'S CELL PHONE NUMBER WAS GIVEN FOR ANY QUESTIONS REGARDING THE PROCEDURE.
[2020-02-14 11:32] VITALS: BP 134/89
--- NOTE | 2020-02-14 13:15 | NUR ---
RD FOLLOW UP Pt s/p Dobhoff placement. Tube feedings held at this time d/t Pt with increased abdominal pain with tube feedings. NPO x 2 days. Pt with pancreatic pseudocyst, per EMR. Bowel Rest in place. Recommend Altered means nutrition/PPN RD to follow up. Please notify as additional nutrition concerns arise. Thank you. Addendum: 02/14/20 at [address] Amended: Links added.
[2020-02-14] MEDS: FLUCONAZOLE 200 MG/NS 100 ML 100 ML IV SCH (13:26)
[2020-02-14] MEDS ORDERED: LIDOCAINE HCL 2% VISCOUS 15 ML UDCUP ONE (14:24)
--- NOTE | 2020-02-14 15:08 | NUR ---
RD UPDATE Tube Feedings to be Re-initiated, as per RN. RD to continue to monitor.
--- NOTE | 2020-02-14 15:46 | NUR ---
RE: DOPHOFF PLACEMENT DOPHOFF PLACED TO RT NARE AND INTO THE STOMACH. PLACEMENT VERIFIED WITH X-RAY. FEEDING TUBE ADVANCED TO THE JEJUNEM OVER A WIRE BY DR James SAENZ. DOPHOFF SECURED TO RT NARE WITH TAPE AND TRANSPORTED TO [facility] VIA W/C.
--- NOTE | 2020-02-14 15:50 | NUR ---
RETURNED TO ROOM ACCOMPANIED BY DAMON ÁLVAREZ. SHARON FT IN PLACE, WITH TAPE. SECURED. EXTERNAL PORTION OF FEEDING TUBE MEASURED, 51CM NOTED.
[2020-02-14 16:19] VITALS: BP 161/90
[2020-02-14 18:51] LABS: HEMATOCRIT 24.1 % (42-54)
[2020-02-14 19:00] VITALS: BP 157/91
[2020-02-14 23:00] VITALS: BP 152/87
[2020-02-15] MEDS: HYDROMORPHONE 1 MG/1 ML AMP IVP PRN ×6 (01:29→22:15)
[2020-02-15 03:00] VITALS: BP 153/89
--- NOTE | 2020-02-15 04:00 | NUR ---
ROUNDS PATIENT AWAKE AND ALERT WATCHING TV AND ON THE PHONE AT THIS TIME. VITALS STABLE. AFEBRILE. NO COMPLAINTS OF PAIN BUT PATIENT ASKS WHEN HIS PAIN MEDICATION IS DUE. REDIRECTED PATIENT HAS SLEPT ALL NIGHT AND PAIN MEDICATION IS NOT DUE YET. RESP EVEN AND UNLABORED. NO SOB NOTED. O2 ON AT 2LPM VIA NASAL CANNULA. TOLERATING TUBE FEEDING WELL. VITAL AF 1.2 INFUSING AT 30ML/HR. NO NAUSEA OR VOMITING NOTED. ABD DISTENDED. PATIENT CONSTANTLY ASKING FOR WATER AND ICE CHIPS. REDIRECTED THAT HE IS NPO. PATIENT HAS BEEN DRINKING WATER WHEN GIVEN WATER FOR MOUTH SWABS. PATIENT VERBALIZES UNDERSTANDING AT THIS TIME. HOB ELEVATED. CALL LIGHT WITHIN REACH. WILL CONTINUE TO BE OBSERVED. Addendum: 02/15/20 at 0620 by ANJUM MI RN RN Amended: Links added.
[2020-02-15] MEDS: MEROPENEM 1 GM VIAL IVP SCH ×3 (04:27→21:41)
[2020-02-15 05:35] LABS: BASOPHILS % (AUTO) 0.5 % (0.0-5.0); EOSINOPHILS % (AUTO) 1.3 % (0.0-8.0); HEMATOCRIT 25.2 % (42-54); LYMPHOCYTES % (AUTO) 5.8 % (21.0-51.0); MEAN CORPUSCULAR HEMOGLOBIN 27.8 pg (27.0-33.0); MEAN CORPUSCULAR HGB CONC 30.6 g/dL (32.0-36.0); MONOCYTES % (AUTO) 8.7 % (3.0-13.0); NEUTROPHILS % (AUTO) 82.2 % (40.0-77.0); RED BLOOD CELL COUNT(AUTO) 2.77 MIL/uL (4.50-6.20); RED CELL DISTRIBUTION WIDTH 16.1 % (11.0-15.5); WHITE BLOOD COUNT (AUTO) 29.5 K/uL (4.8-10.8)
[2020-02-15] MEDS: VANCOMYCIN 1GM+NS 250ML 250 ML IV SCH (05:36)
[2020-02-15 05:46] LABS: PLATELET COUNT (AUTO) 867 K/uL (130-400)
[2020-02-15 06:04] LABS: ALBUMIN 1.6 g/dL (3.5-5.0); BILIRUBIN,TOTAL 1.2 mg/dL (0.2-1.0); CREATININE 2.2 mg/dL (0.5-1.5)
[2020-02-15 06:23] LABS: CRP QUANTITATIVE 279.4 mg/L (0.00-9.0)
[2020-02-15] MEDS: INSULIN HUMULIN R 100 UNIT/ML 3ML SQ SCH ×4 (06:26→21:00)
[2020-02-15 06:27] LABS: ERYTHROCYTE SEDIMENTATION RATE 120 MM/HR (0-15)
[2020-02-15] MEDS: LIPASE/PROTEASE/AMYLASE 5000/17000/24000 PO SCH ×4 (07:41→21:00)
[2020-02-15] MEDS: PANTOPRAZOLE SODIUM 40 MG TABLET.DR PO SCH (07:42)
[2020-02-15 08:10] VITALS: BP 157/96
[2020-02-15] MEDS: IRON SUCROSE COMPLEX 100 MG in SODIUM CHLORIDE 0.9% 50 ML IV SCH (08:20)
[2020-02-15 11:42] VITALS: BP 145/91
[2020-02-15] MEDS: FLUCONAZOLE 200 MG/NS 100 ML 100 ML IV SCH (13:54)
[2020-02-15] MEDS: FAMOTIDINE/PF 20 MG/2 ML VIAL IV SCH (13:54)
[2020-02-15] MEDS: SODIUM CHLORIDE 0.9% 1000ML 1,000 ML IV SCH ×2 (14:01→17:52)
[2020-02-15 16:58] VITALS: BP 156/90
[2020-02-15 20:14] VITALS: BP 145/89
[2020-02-16] VITALS (7 sets, daily range): BP systolic 131–165; BP diastolic 91–105
[2020-02-16] MEDS: HYDROMORPHONE 1 MG/1 ML AMP IVP PRN ×6 (02:47→22:33)
[2020-02-16] MEDS: MEROPENEM 1 GM VIAL IVP SCH ×2 (05:19→22:15)
--- NOTE | 2020-02-16 05:41 | NUR ---
BLE EDEMA UPON HEAD TO TOE ASSESSMENT AT BEGINNING OF MY SHIFT, PT HAS +4 EDEMA TO HIS LOWER EXTREMITIES. PT DENIES PAIN TO LEGS, ONLY EXPERIENCES DISCOMFORT. PULSES ARE PALPABLE. EDUCATED PT ON MOVING/EXERCISING HIS EXTREMITIES WHILE LAYING IN BED. Addendum: 02/16/20 at 0640 by JOSEPH ANGULO RN CORRECTION, EDEMA IS +2 EDEMA NON PITTING TO BLE.
[2020-02-16 06:03] LABS: BASOPHILS % (AUTO) 0.4 % (0.0-5.0); EOSINOPHILS % (AUTO) 1.2 % (0.0-8.0); HEMATOCRIT 22.7 % (42-54); LYMPHOCYTES % (AUTO) 4.9 % (21.0-51.0); MEAN CORPUSCULAR HEMOGLOBIN 28.4 pg (27.0-33.0); MEAN CORPUSCULAR HGB CONC 31.3 g/dL (32.0-36.0); MEAN CORPUSCULAR VOLUME 90.8 fL (79-99); MONOCYTES % (AUTO) 9.6 % (3.0-13.0); NEUTROPHILS % (AUTO) 81.8 % (40.0-77.0); RED CELL DISTRIBUTION WIDTH 16.7 % (11.0-15.5)
[2020-02-16 06:10] LABS: PLATELET COUNT (AUTO) 819 K/uL (130-400); WHITE BLOOD COUNT (AUTO) 33.4 K/uL (4.8-10.8)
[2020-02-16 06:20] LABS: ALBUMIN 1.6 g/dL (3.5-5.0); BILIRUBIN,TOTAL 1.2 mg/dL (0.2-1.0); CREATININE 1.9 mg/dL (0.5-1.5); POTASSIUM 4.1 mmol/L (3.5-5.1); TOTAL PROTEIN, SERUM 6.7 g/dL (6.0-8.3)
[2020-02-16] MEDS: SODIUM CHLORIDE 0.9% 1000ML 1,000 ML IV SCH ×2 (06:28→21:09)
--- NOTE | 2020-02-16 06:37 | NUR ---
BLE EDEMA PT HAS BEEN EXERCISING HIS LEGS WHILE LAYING IN BED. LEFT LOWER EXTREMITY IS +2 NON PITTING, RIGHT LOWER EXTREMITY IS +1 NON PITTING.
[2020-02-16 06:39] LABS: BAND NEUTROPHILS % (MANUAL) 15 % (0-2); LYMPHOCYTES % (MANUAL) 2 % (22-44); MAN.DIFF COMMENT-IMPRESSION MANUAL DIFFERENTIAL; MONOCYTES % (MANUAL) 8 % (2-9); SEGMENTED NEUTROPHILS % 75 % (40-70)
[2020-02-16 06:40] LABS: PLATELET MORPHOLOGY COMMENT MARKED INCREASE
[2020-02-16] MEDS: INSULIN HUMULIN R 100 UNIT/ML 3ML SQ SCH ×4 (06:44→20:38)
[2020-02-16 06:49] LABS: CRP QUANTITATIVE 298.3 mg/L (0.00-9.0)
[2020-02-16] MEDS: VANCOMYCIN 1GM+NS 250ML 250 ML IV SCH (06:54)
[2020-02-16 07:06] LABS: ERYTHROCYTE SEDIMENTATION RATE 110 MM/HR (0-15)
[2020-02-16] MEDS: LIPASE/PROTEASE/AMYLASE 5000/17000/24000 PO SCH ×4 (08:59→19:26)
[2020-02-16] MEDS: FAMOTIDINE/PF 20 MG/2 ML VIAL IV SCH (09:57)
[2020-02-16] MEDS: IRON SUCROSE COMPLEX 100 MG in SODIUM CHLORIDE 0.9% 50 ML IV SCH (09:59)
[2020-02-16] MEDS: FLUCONAZOLE 200 MG/NS 100 ML 100 ML IV SCH (14:15)
--- NOTE | 2020-02-16 15:18 | NUR ---
1230 transfer request for higher level of care. call made to [facility] spoke to intake nurse duyen information E-mail for review call back pending . 1305 call back from [place] intake nurse with a denial full to capacity pt and primary nurse made aware both verbalized understanding. DR amaya also made aware planning to reconsult GI. Erasmo knowles
[2020-02-17] MEDS: HYDROMORPHONE 1 MG/1 ML AMP IVP PRN ×4 (02:36→16:07)
[2020-02-17 04:35] VITALS: BP 152/99
[2020-02-17] MEDS: INSULIN HUMULIN R 100 UNIT/ML 3ML SQ SCH ×3 (06:26→16:17)
[2020-02-17] MEDS: VANCOMYCIN 1GM+NS 250ML 250 ML IV SCH (06:26)
[2020-02-17] MEDS: MEROPENEM 1 GM VIAL IVP SCH ×2 (06:26→15:53)
[2020-02-17] MEDS: LIPASE/PROTEASE/AMYLASE 5000/17000/24000 PO SCH ×3 (08:03→15:42)
--- NOTE | 2020-02-17 08:15 | NUR ---
DOKATIEOFF DR LILLY PAGED AND MADE AWARE PT REMOVED DOBHOFF AND MADE AWARE OF ELEVATED HEART RATE; STATES WILL SEE PT
[2020-02-17] MEDS ORDERED: HYDROMORPHONE HCL 2 MG/ML VIAL IVP SCH (08:30)
[2020-02-17 08:39] VITALS: BP 158/105
[2020-02-17] MEDS: FAMOTIDINE/PF 20 MG/2 ML VIAL IV SCH (09:17)
[2020-02-17] MEDS: IRON SUCROSE COMPLEX 100 MG in SODIUM CHLORIDE 0.9% 50 ML IV SCH (09:17)
[2020-02-17 09:21] LABS: BASOPHILS % (AUTO) 0.6 % (0.0-5.0); EOSINOPHILS % (AUTO) 0.9 % (0.0-8.0); HEMATOCRIT 25.1 % (42-54); LYMPHOCYTES % (AUTO) 5.5 % (21.0-51.0); MEAN CORPUSCULAR HEMOGLOBIN 28.3 pg (27.0-33.0); MEAN CORPUSCULAR HGB CONC 30.7 g/dL (32.0-36.0); MEAN CORPUSCULAR VOLUME 92.3 fL (79-99); MONOCYTES % (AUTO) 9.8 % (3.0-13.0); NEUTROPHILS % (AUTO) 80.9 % (40.0-77.0); RED BLOOD CELL COUNT(AUTO) 2.72 MIL/uL (4.50-6.20); RED CELL DISTRIBUTION WIDTH 17.2 % (11.0-15.5)
[2020-02-17 09:34] LABS: WHITE BLOOD COUNT (AUTO) 36.4 K/uL (4.8-10.8)
[2020-02-17 09:35] LABS: PLATELET COUNT (AUTO) 884 K/uL (130-400)
[2020-02-17 09:51] LABS: ALBUMIN 1.7 g/dL (3.5-5.0); POTASSIUM 4.7 mmol/L (3.5-5.1); TOTAL PROTEIN, SERUM 7.3 g/dL (6.0-8.3)
[2020-02-17 09:54] LABS: BASOPHILS % (MANUAL) 1 % (0-2); EOSINOPHILS % (MANUAL) 2 % (1-6); LYMPHOCYTES % (MANUAL) 1 % (22-44); MAN.DIFF COMMENT-IMPRESSION MANUAL DIFFERENTIAL; MONOCYTES % (MANUAL) 6 % (2-9); SEGMENTED NEUTROPHILS % 90 % (40-70)
[2020-02-17 09:55] LABS: PLATELET MORPHOLOGY COMMENT MARKED INCREASE
[2020-02-17 10:05] LABS: BILIRUBIN,TOTAL 1.1 mg/dL (0.2-1.0)
[2020-02-17 10:23] LABS: CRP QUANTITATIVE 339.1 mg/L (0.00-9.0)
[2020-02-17 10:27] LABS: ERYTHROCYTE SEDIMENTATION RATE 120 MM/HR (0-15)
[2020-02-17] MEDS: SODIUM CHLORIDE 0.9% 1000ML 1,000 ML IV SCH (10:51)
[2020-02-17 10:54] VITALS: BP 166/107
[2020-02-17] MEDS ORDERED: LIDOCAINE HCL 2% VISCOUS 15 ML UDCUP ONE (14:59)
[2020-02-17] MEDS ORDERED: LIDOCAINE HCL 2% VISCOUS 15 ML UDCUP PO SCH (15:00)
--- NOTE | 2020-02-17 15:30 | NUR ---
DOBHOFF PT RETURNED FROM IR, S/P DOBHOFF PLACEMENT. DOBHOFF SECURED, IN PLACE. AWAKE AND ORIENTED, NO DISTRESS.
[2020-02-17] MEDS: FLUCONAZOLE 200 MG/NS 100 ML 100 ML IV SCH (15:52)
--- NOTE | 2020-02-17 16:20 | NUR ---
RD FOLLOW UP Pt continues with low rate tube feeding, Vital AF 1.2 @20mls/hr secondary to severe pain with pancreatitis. Dobhoff in place, BLE 2+ edema, non pitting. Recommend continue Tube Feeding, advance as tolerated to goal. Recommend add 60mL ProMod BID via feeding tube *INSTRUCTIONS: 1) MIX PROMOD WITH 60ML H2O. 2) FLUSH FEEDING TUBE WITH 30ML H2O BEFORE AND AFTER PROMOD ADMINISTERED. RD to continue to monitor. Please notify as additional nutrition concerns arise. Thank you. Addendum: 02/17/20 at [address] Amended: Links added.
--- NOTE | 2020-02-17 16:25 | NUR ---
MD MEETING WITH FAMILY PT'S FATHER AND FAMILY MEMBER HERE TO MEET WITH PT AND DR LILLY. DR LILLY SPOKE WITH PT AND FAMILY IN DETAIL, QUESTIONS ANSWERED PER .
[2020-02-17 17:05] VITALS: BP 148/74
--- NOTE | 2020-02-17 17:10 | NUR ---
AMA PT AWAKE AND ORIENTED, FAMILY AT BEDSIDE. PT STATES WANTING TO LEAVE AMA, PT'S FATHER IN AGREEMENT WITH PT. PT AND FATHER AWARE OF RISKS OF LEAVING AMA, ACKNOWLEDGED ALL INFORMATION AND RISKS REGARDING LEAVING AMA AND STATE WILL PROCEED TO LEAVE AGAINST MEDICAL ADVICE. MADE AWARE
--- NOTE | 2020-02-17 18:00 | NUR ---
EMS PT'S FATHER, FAMILY MEMBER, AND PT MAKING ARRANGEMENTS FOR NON-EMERGENT EMS TRANSPORT
--- NOTE | 2020-02-17 21:35 | NUR ---
pt left via EMS with family members at bed side
== END 2020-02-17 21:35 | disposition left against medical advice (07) | DRG 871 ==
LOC: EDH 21:57 → EDHIP 21:58 → 4DH 02-04 02:02 → 4AH 02-06 18:16
PROVIDERS: ADMIT Internal Medicine; ATTEND Internal Medicine
PROC: 30233N1 Transfusion of Nonautologous Red Blood Cells into Peripheral Vein, Percutaneous Approach (ICD-10-PCS; principal; 2020-02-07)
PROC: 0DH97UZ Insertion of Feeding Device into Duodenum, Via Natural or Artificial Opening (ICD-10-PCS; 2020-02-14)
DX: A41.9 Sepsis, unspecified organism (principal); K85.20 Alcohol induced acute pancreatitis without necrosis or infection; K86.3 Pseudocyst of pancreas; E87.1 Hypo-osmolality and hyponatremia; J90 Pleural effusion, not elsewhere classified; N17.9 Acute kidney failure, unspecified; K86.0 Alcohol-induced chronic pancreatitis; D63.8 Anemia in other chronic diseases classified elsewhere; E11.22 Type 2 diabetes mellitus with diabetic chronic kidney disease; E86.9 Volume depletion, unspecified; F12.90 Cannabis use, unspecified, uncomplicated; G89.29 Other chronic pain; I12.9 Hypertensive chronic kidney disease with stage 1 through stage 4 chronic kidney disease, or unspecified chronic kidney disease; I34.1 Nonrheumatic mitral (valve) prolapse; I48.91 Unspecified atrial fibrillation; N18.9 Chronic kidney disease, unspecified; Z87.891 Personal history of nicotine dependence
CPT/HCPCS: 36415; 36430; 36600; 43752; 43761; 71045; 71046; 74018; 74176; 74177; 74181; 76705; 80048; 80053; 80061; 80074; 80076; 80202; 80305; 81001; 82150; 82270; 82550; 82803; 82948; 83036; 83540; 83550; 83605; 83690; 83735; 83874; 83880; 83883; 84100; 84145; 84156; 84166; 84484; 85014; 85018; 85025; 85027; 85610; 85651; 85730; 86140; 86325; 86334; 86850; 86900; 86901; 86922; 87040; 87088; 87486; 87581; 87633; 87635; 87798; 93005; 99291; C9113; G0378; G0480; J1170; J1450; J1756; J1885; J1940; J2185; J2270; J2405; J2543; J3370; J3475; J3490; J7030; J7040; J7050; P9016; Q9967

== ENCOUNTER 2020-04-19 22:12 | Emergency (ER) | payer OTHER ==
[~2020-04-19 22:12] MED LIST: CIPR-245 PO; FENO48TA9 PO; HYOS-27 SL
[2020-04-19] MEDS ORDERED: ONDANSETRON HCL 4 MG/2 ML VIAL ONE (22:41)
[2020-04-19 22:56] LABS: BASOPHILS % (AUTO) 0.8 % (0.0-5.0); EOSINOPHILS % (AUTO) 6.2 % (0.0-8.0); HEMATOCRIT 37.1 % (42-54); LYMPHOCYTES % (AUTO) 21.6 % (21.0-51.0); MEAN CORPUSCULAR HGB CONC 31.8 g/dL (32.0-36.0); MEAN CORPUSCULAR VOLUME 91.2 fL (79-99); MONOCYTES % (AUTO) 11.7 % (3.0-13.0); NEUTROPHILS % (AUTO) 59.5 % (40.0-77.0); PLATELET COUNT (AUTO) 192 K/uL (130-400); RED BLOOD CELL COUNT(AUTO) 4.07 MIL/uL (4.50-6.20); RED CELL DISTRIBUTION WIDTH 17.1 % (11.0-15.5); WHITE BLOOD COUNT (AUTO) 6.3 K/uL (4.8-10.8)
[2020-04-19 23:07] LABS: CREATININE 0.9 mg/dL (0.5-1.5); POTASSIUM 3.6 mmol/L (3.5-5.1)
[2020-04-19 23:11] LABS: ALBUMIN 3.9 g/dL (3.5-5.0); BILIRUBIN,TOTAL 0.2 mg/dL (0.2-1.0); TOTAL PROTEIN, SERUM 7.8 g/dL (6.0-8.3)
[2020-04-19] MEDS ORDERED: IBUPROFEN 600 MG TABLET ONE (23:35)
[2020-04-19 23:58] LABS: APPEARANCE,URINE Clear (CLEAR); BILIRUBIN,URINE Negative (NEGATIVE); COLOR,URINE Yellow (YELLOW); GLUCOSE, URINE (UA) Negative (NEGATIVE); KETONES,URINE Trace mg/dL (NEGATIVE); LEUKOCYTE ESTERASE ,URINE Negative (NEGATIVE); NITRATE,URINE Negative (NEGATIVE); OCCULT BLOOD,URINE Negative (NEGATIVE); PH,URINE 5.5 (5.0-8.0); PROTEIN,URINE Negative (NEGATIVE); UROBILINOGEN,URINE 0.2 mg/dL (0.2-1.0)
[2020-04-20 00:11] LABS: AMPHET/METH SCREEN,URINE NEGATIVE (NEGATIVE); BARBITURATE SCREEN, URINE NEGATIVE (NEGATIVE); BENZODIAZEPINES SCREEN,URINE POSITIVE (NEGATIVE); CANNABINOID SCREEN,URINE POSITIVE (NEGATIVE); COCAINE SCREEN,URINE NEGATIVE (NEGATIVE); OPIATE SCREEN,URINE NEGATIVE (NEGATIVE); PHENCYCLIDINE SCREEN,URINE NEGATIVE (NEGATIVE)
== END 2020-04-20 00:43 | disposition home or self-care (01) ==
LOC: EDH 22:12
DX: T85.528A Displacement of other gastrointestinal prosthetic devices, implants and grafts, initial encounter (principal); F10.129 Alcohol abuse with intoxication, unspecified; G89.29 Other chronic pain; R10.9 Unspecified abdominal pain; I10 Essential (primary) hypertension; I48.91 Unspecified atrial fibrillation; Z98.890 Other specified postprocedural states
CPT/HCPCS: 36415; 80053; 80305; 81003; 82550; 83605; 83690; 85025; 96374; 99283; J2405

== ENCOUNTER 2022-01-07 10:11 | Emergency (ER) | payer OTHER ==
[~2022-01-07] VITALS: Ht 175.3 cm; Wt 104.3 kg
[~2022-01-07 10:11] MED LIST changes: -CIPR-245 PO; +CIPR500T10 PO; +FENO48TA10 PO; -FENO48TA9 PO
[2022-01-07 10:18] VITALS: BP 126/90
[2022-01-07] MEDS ORDERED: NAPR500T6 PO (12:53)
[2022-01-07] MEDS ORDERED: TRAM50TA2 PO (12:53)
[2022-01-07] MEDS ORDERED: TRAMADOL HCL 50 MG TABLET PO ONE (13:00)
[2022-01-07] MEDS ORDERED: KETOROLAC 30MG VIAL (30MG/ML) IM ONE (13:00)
[2022-01-07] MEDS ORDERED: ACETAMINOPHEN WITH CODEINE 1 TAB TAB PO ONE (13:00)
== END 2022-01-07 13:05 | disposition home or self-care (01) ==
LOC: EDH 10:11
DX: K08.89 Other specified disorders of teeth and supporting structures (principal); E78.00 Pure hypercholesterolemia, unspecified; Z90.89 Acquired absence of other organs; Z98.890 Other specified postprocedural states
CPT/HCPCS: 96372; 99283; J1885

== ENCOUNTER 2023-05-22 07:33 | Emergency (ER) | payer OTHER ==
[~2023-05-22] VITALS: Ht 172.7 cm; Wt 113.4 kg
[~2023-05-22 07:33] MED LIST changes: +NAPR500T6 PO; +TRAM50TA2 PO
[2023-05-22 08:00] LABS: BASOPHILS # (AUTO) 0.04 K/uL (0.00-0.20); BASOPHILS % (AUTO) 0.8 % (0.0-5.0); EOSINOPHILS # (AUTO) 0.29 K/uL (0.00-0.70); EOSINOPHILS % (AUTO) 5.7 % (0.0-8.0); HEMATOCRIT 38.5 % (42-54); IMMATURE GRANULOCYTE ABSOLUTE 0.01 K/uL (0-1); LYMPHOCYTES # (AUTO) 1.9 K/uL (1.0-4.8); LYMPHOCYTES % (AUTO) 36.5 % (21.0-51.0); MEAN CORPUSCULAR HEMOGLOBIN 29.8 pg (27.0-33.0); MEAN CORPUSCULAR HGB CONC 33.2 g/dL (32.0-36.0); MEAN CORPUSCULAR VOLUME 89.7 fL (79-99); MONOCYTES # (AUTO) 0.6 K/uL (0.1-1.0); MONOCYTES % (AUTO) 12.4 % (3.0-13.0); NEUTROPHILS # (AUTO) 2.3 K/uL (1.8-7.7); NEUTROPHILS % (AUTO) 44.4 % (40.0-77.0); PLATELET COUNT (AUTO) 176 K/uL (130-400); RED BLOOD CELL COUNT(AUTO) 4.29 MIL/uL (4.50-6.20); RED CELL DISTRIBUTION WIDTH 14.3 % (11.0-15.5); WHITE BLOOD COUNT (AUTO) 5.1 K/uL (4.8-10.8)
[2023-05-22 08:11] LABS: CREATININE 0.7 mg/dL (0.5-1.5); POTASSIUM 3.9 mmol/L (3.5-5.1)
[2023-05-22 08:16] LABS: ALBUMIN 3.6 g/dL (3.5-5.0); BILIRUBIN,TOTAL 0.2 mg/dL (0.2-1.0); TOTAL PROTEIN, SERUM 6.9 g/dL (6.0-8.3)
[2023-05-22 08:52] LABS: SARS-CoV-2, RNA, NAAT NEGATIVE SARS CoV-2 (NEGATIVE)
[2023-05-22 08:56] LABS: INFLUENZA TYPE A Negative For Type A (NEGATIVE); INFLUENZA TYPE B Negative For Type B (NEGATIVE)
[2023-05-22 09:32] LABS: APPEARANCE,URINE CLEAR (CLEAR); BILIRUBIN,URINE NEGATIVE (NEGATIVE); COLOR,URINE LIGHT-YELLOW (YELLOW); GLUCOSE, URINE (UA) NEGATIVE (NEGATIVE); KETONES,URINE NEGATIVE (NEGATIVE); LEUKOCYTE ESTERASE ,URINE NEGATIVE Leu/uL (NEGATIVE); NITRATE,URINE NEGATIVE (NEGATIVE); OCCULT BLOOD,URINE NEGATIVE (NEGATIVE); PH,URINE 5.5 (5.0-8.0); PROTEIN,URINE 10 mg/dL (NEGATIVE); UROBILINOGEN,URINE 0.2 mg/dL (0.2-1.0)
[2023-05-22 09:41] LABS: ADD UA MICROSCOPIC YES
[2023-05-22 09:46] LABS: WBC,URINE 0-1 /HPF (0-1)
[2023-05-22 10:20] VITALS: BP 131/80; PULSE 96; RESP 16; O2SAT 97
[2023-05-22] MEDS ORDERED: ASPI-1005 PO (12:33)
== END 2023-05-22 13:28 | disposition home or self-care (01) ==
LOC: EDH 07:33
DX: I48.91 Unspecified atrial fibrillation (principal); E78.00 Pure hypercholesterolemia, unspecified; Z20.822 Contact with and (suspected) exposure to COVID-19; Z79.899 Other long term (current) drug therapy; Z98.890 Other specified postprocedural states; Z90.49 Acquired absence of other specified parts of digestive tract
CPT/HCPCS: 99285; 70450; 71045; 87635; 82550; 84484; 80053; 85025; 87804 ×2; 83605; 81001; 36415; 93005; C9803

== ENCOUNTER 2023-07-21 15:13 | Emergency (ER) | payer OTHER ==
[~2023-07-21] VITALS: Ht 175.3 cm; Wt 104.3 kg
[~2023-07-21 15:13] MED LIST changes: +ASPI-1005 PO
[2023-07-21 15:51] LABS: RAPID GROUP A STREP negative (NEGATIVE)
[2023-07-21 15:53] LABS: SARS-CoV-2, RNA, NAAT NEGATIVE SARS CoV-2 (NEGATIVE)
[2023-07-21 16:05] LABS: INFLUENZA TYPE A Negative For Type A (NEGATIVE); INFLUENZA TYPE B Negative For Type B (NEGATIVE)
[2023-07-21] MEDS ORDERED: AZITH500IV IV (17:01)
[2023-07-21] MEDS ORDERED: BENZ-39 PO (17:01)
[2023-07-21] MEDS ORDERED: IBUP-2077 PO (17:24)
[2023-07-21 18:08] VITALS: BP 132/87; PULSE 85; RESP 16; O2SAT 97
== END 2023-07-21 18:11 | disposition home or self-care (01) ==
LOC: EDH 15:13
DX: J20.9 Acute bronchitis, unspecified (principal); R05.9 Cough, unspecified; I10 Essential (primary) hypertension; E78.00 Pure hypercholesterolemia, unspecified; I48.91 Unspecified atrial fibrillation; Z79.82 Long term (current) use of aspirin; Z20.822 Contact with and (suspected) exposure to COVID-19; Z79.899 Other long term (current) drug therapy; Z90.49 Acquired absence of other specified parts of digestive tract; Z98.890 Other specified postprocedural states
CPT/HCPCS: 99284; 71045; 87635; 87880; 87804 ×2; C9803